=== PATIENT | male | born 1940 | race Caucasian/White ===

== ENCOUNTER 2016-10-11 14:20 | Outpatient (CLI) ==
[2016-10-11 21:39] LABS: MONO INTERNAL QC INTERNAL QC VALID
== END 2016-10-11 14:21 | disposition home or self-care (01) ==
LOC: LAB 14:20
PROVIDERS: ATTEND Nurse Practitioner Acute Care
DX: R53.83 Other fatigue (principal)
CPT/HCPCS: 36415; 86308

== ENCOUNTER 2016-11-16 11:18 | Outpatient (CLI) ==
[2016-11-16 11:40] LABS: ABG BASE EXCESS 1 (-2.0-2.0); ABG PCO2 41.5 mmHg (35-45); ABG PH 7.406 (7.35-7.45); ABG TCO2 27 (22.0-28.0)
== END 2016-11-16 11:19 | disposition home or self-care (01) ==
LOC: CAR 11:18 → PUL.REHAB 11:18 → CAR 11:19 → EDSTATUS 11:31
PROVIDERS: ATTEND Nurse Practitioner Acute Care
DX: J44.9 Chronic obstructive pulmonary disease, unspecified (principal); R09.02 Hypoxemia; J43.9 Emphysema, unspecified
CPT/HCPCS: 82803

== ENCOUNTER 2016-11-24 10:09 | Outpatient (RCR) ==
[2016-11-24 11:00] VITALS: BP 140/62
== END 2016-12-05 ==
LOC: PUL.REHAB 10:09
PROVIDERS: ATTEND Internal Medicine
DX: J44.9 Chronic obstructive pulmonary disease, unspecified (principal); R09.02 Hypoxemia

== ENCOUNTER 2016-12-06 12:28 | Outpatient (RCR) ==
[2017-01-04 11:42] VITALS: BP 130/52
== END 2017-01-05 ==
LOC: PUL.REHAB 12:28
PROVIDERS: ATTEND Internal Medicine
DX: J44.9 Chronic obstructive pulmonary disease, unspecified (principal); R09.02 Hypoxemia

== ENCOUNTER 2017-01-06 12:13 | Outpatient (RCR) ==
[2017-01-18 11:57] VITALS: BP 128/58
== END 2017-02-04 ==
LOC: PUL.REHAB 12:13
PROVIDERS: ATTEND Internal Medicine
DX: J44.9 Chronic obstructive pulmonary disease, unspecified (principal); R09.02 Hypoxemia